=== PATIENT | female | born 1950 | race Caucasian/White ===

== ENCOUNTER 2018-03-18 07:11 | Day surgery (SDC) | payer BC, MEDICARE ==
[2018-03-18] MEDS: Polymyxin B/Trimethoprim 10 ML Bottle EYERT SCH ×4 (07:27→08:54)
[2018-03-18] MEDS: Brimonidine 0.2% Ophth Soln 5 ML Bottle EYERT SCH ×5 (07:32→08:54)
--- NOTE | 2018-03-18 07:32 | PCM.PREANE ---
Preanesthetic Assessment - Anesthesia/Transfusion/Family Hx Anesthesia History: Prior Anesthesia Without Reaction Family History of Anesthesia Reaction: No Transfusion History: No Prior Transfusion(s) - Review of Systems General: No Symptoms, Other (high cholesterol) Pulmonary: No Symptoms, Other (HTN) Cardiovascular: Other (HTn) Gastrointestinal: No Symptoms Neurological: Other (chronic back pain) Other: Reports: Diabetes (am glucose 160) - Physical Assessment NPO Status Date: 03/17/18 NPO Status Time: 17:30 Pulse: 58 O2 Sat by Pulse Oximetry: 100 Respiratory Rate: 16 Blood Pressure: 164/71 Weight: 60.328 kg ASA Class: 2 Mental Status: Alert & Oriented x3 Airway Class: Mallampati = 2 Dentition: Reports: Normal Dentition Thyro-Mental Finger Breadths: 3 Mouth Opening Finger Breadths: 3 ROM/Head Extension: Full Lungs: Clear to Auscultation, Normal Respiratory Effort Cardiovascular: Regular Rate, Regular Rhythm - Allergies Allergies/Adverse Reactions: Allergies Allergy/AdvReac Type Severity Reaction Status Date / Time hydrocodone Allergy Cannot Verified 03/17/18 13:59 Remember Opioids - Morphine Analogues Allergy Cannot Verified 03/17/18 13:59 Remember Penicillins Allergy Cannot Verified 03/17/18 13:59 Remember - Blood Blood Available: No Product(s) Available: None - Anesthesia Plan Beta Mile: Atenolol Med Last Dose Date: 03/18/18 Med Last Dose Time: 08:00 - Acknowledgements Anesthesia Type Planned: MAC Pt an Appropriate Candidate for the Planned Anesthesia: Yes Alternatives and Risks of Anesthesia Discussed w Pt/Guardian: Yes Pt/Guardian Understands and Agrees with Anesthesia Plan: Yes PreAnesthesia Questionnaire - HOME MEDS Home Medications: Home Meds Alendronate Sodium [Fosamax] 70 mg PO WEEKLY 03/17/18 [History] Atenolol 100 mg PO DAILY 03/17/18 [History] Omeprazole 20 mg PO DAILY 03/17/18 [History] Simvastatin [Zocor] 10 mg PO DAILY 03/17/18 [History] Triamterene/Hydrochlorothiazid [Triamterene-HCTZ 37.5-25 MG] 1 tab PO DAILY [History] glyBURIDE [Glyburide] 5 mg PO DAILY 03/17/18 [History] glyBURIDE/Metformin HCl [Glucovance 5-500 MG] 1 tab PO ASDIRECTED 03/17/18 [ History] - CURRENT (IN HOUSE) MEDS Current Meds: Current Medications Brimonidine Tartrate (Alphagan 0.2% Ophth Soln) 0 ml EYERT ASDIRECTED MAURILIO Stop: 03/18/18 18:00 Cefuroxime Sodium (Zinacef) 0 mg EYERT ASDIRECTED MAURILIO Stop: 03/18/18 18:00 Lidocaine HCl (Xylocaine-Mpf 1%) 0 ml INJECT ASDIRECTED MAURILIO Stop: 03/18/18 18:00 Phenylephrine HCl (Paolo-Synephrine 2.5% Ophth Soln) 0 ml EYERT ASDIRECTED MAURILIO Stop: 03/18/18 18:00 Pilocarpine HCl (Pilocar 4% Ophth Soln) 0 ml EYERT ASDIRECTED MAURILIO Stop: 03/18/18 18:00 Polymyxin/Trimethoprim Sulfate (Polytrim Ophth Soln) 0 ml EYERT ASDIRECTED MAURILIO Stop: 03/18/18 18:00 Tetracaine HCl (Tetracaine 0.5% Steri-Unit Brandi) 1 ml EYERT ASDIRECTED MAURILIO Stop: 03/18/18 18:00 Tropicamide (Mydriacyl 1% Ophth Soln) 0 ml EYERT ASDIRECTED MAURILIO Stop: 03/18/18 18:00
[2018-03-18] MEDS: Phenylephrine 2.5% Ophth Soln 2 ML Bot EYERT SCH ×7 (07:37→08:37)
[2018-03-18] MEDS: Tetracaine HCl/PF 0.5% 4 ML Bottle EYERT SCH ×3 (07:54→08:43)
[2018-03-18] MEDS: Lidocaine 1% PF 2 ML SDV INJECT SCH ×2 (07:54→08:43)
[2018-03-18] MEDS: Cefuroxime 10 MG/ML SYRINGE EYERT SCH ×2 (07:55→08:53)
[2018-03-18] MEDS: Pilocarpine 4% Ophth Soln 15 ML Bot EYERT SCH ×2 (07:56→08:54)
[2018-03-18] MEDS: Tropicamide 1% Ophth Soln 3 ML Bottle EYERT SCH ×2 (08:02→08:22)
--- NOTE | 2018-03-18 08:56 | PCM48HPAN ---
Post Anesthesia Note - EVALUATION WITHIN 48HRS OF ANESTHETIC Vital Signs in Normal Range: Yes Patient Participated in Evaluation: Yes Respiratory Function Stable: Yes Airway Patent: Yes Cardiovascular Function Stable: Yes Hydration Status Stable: Yes Pain Control Satisfactory: Yes Nausea and Vomiting Control Satisfactory: Yes Mental Status Recovered: Yes Pulse Rate: 63 SaO2: 97 Resp Rate: 13 Blood Pressure: 158/72
== END 2018-03-18 09:05 | disposition home or self-care (01) ==
LOC: JD.SDS 07:11
PROVIDERS: ATTEND Ophthalmology
DX: E11.36 Type 2 diabetes mellitus with diabetic cataract (principal); H25.813 Combined forms of age-related cataract, bilateral; I10 Essential (primary) hypertension; H35.3131 Nonexudative age-related macular degeneration, bilateral, early dry stage; H16.223 Keratoconjunctivitis sicca, not specified as Sjogren's, bilateral; H16.103 Unspecified superficial keratitis, bilateral; H02.831 Dermatochalasis of right upper eyelid; H02.834 Dermatochalasis of left upper eyelid; E78.00 Pure hypercholesterolemia, unspecified; Z87.891 Personal history of nicotine dependence; Z79.84 Long term (current) use of oral hypoglycemic drugs; Z79.899 Other long term (current) drug therapy; Z88.5 Allergy status to narcotic agent; Z88.0 Allergy status to penicillin
CPT/HCPCS: 66984; C1780; J0697; A9270-GY; J2001

== ENCOUNTER 2018-04-22 07:34 | Day surgery (SDC) | payer MEDICARE ==
[~2018-04-22 07:34] MED LIST: Cefuroxime 10 MG/ML SYRINGE EYELF SCH
[2018-04-22] MEDS: Polymyxin B/Trimethoprim 10 ML Bottle EYELF SCH ×4 (07:50→09:26)
--- NOTE | 2018-04-22 07:53 | PCM.PREANE ---
Preanesthetic Assessment - Anesthesia/Transfusion/Family Hx Anesthesia History: Prior Anesthesia Without Reaction Transfusion History: No Prior Transfusion(s) - Review of Systems General: No Symptoms Pulmonary: No Symptoms Cardiovascular: No Symptoms Gastrointestinal: No Symptoms Neurological: No Symptoms Other: Reports: None - Physical Assessment NPO Status Date: 04/21/18 NPO Status Time: 18:00 ASA Class: 3 Mental Status: Alert & Oriented x3 Airway Class: Mallampati = 2 Dentition: Reports: Normal Dentition ROM/Head Extension: Full Lungs: Clear to Auscultation - Allergies Allergies/Adverse Reactions: Allergies Allergy/AdvReac Type Severity Reaction Status Date / Time hydrocodone Allergy Cannot Verified 04/21/18 13:10 Remember Opioids - Morphine Analogues Allergy Cannot Verified 04/21/18 13:10 Remember Penicillins Allergy Cannot Verified 04/21/18 13:10 Remember - Anesthesia Plan Beta Mile: Atenolol Med Last Dose Date: 04/21/18 Med Last Dose Time: 19:00 - Acknowledgements Anesthesia Type Planned: MAC Pt an Appropriate Candidate for the Planned Anesthesia: Yes Alternatives and Risks of Anesthesia Discussed w Pt/Guardian: Yes Pt/Guardian Understands and Agrees with Anesthesia Plan: Yes PreAnesthesia Questionnaire Cardiovascular History: Reports: High Cholesterol, Hypertension Endocrine/Metabolic History: Reports: Diabetes, Type II - Past Surgical History HEENT Surgical History: Reports: Cataract Surgery GI Surgical History: Reports: Appendectomy, Cholecystectomy Female Surgical History: Reports: Tubal Ligation - HOME MEDS Home Medications: Home Meds Alendronate Sodium [Fosamax] 70 mg PO WEEKLY 03/17/18 [History] Atenolol 100 mg PO DAILY 03/17/18 [History] Omeprazole 20 mg PO DAILY 03/17/18 [History] Simvastatin [Zocor] 10 mg PO DAILY 03/17/18 [History] Triamterene/Hydrochlorothiazid [Triamterene-HCTZ 37.5-25 MG] 1 tab PO DAILY [History] glyBURIDE [Glyburide] 5 mg PO DAILY 03/17/18 [History] glyBURIDE/Metformin HCl [Glucovance 5-500 MG] 1 tab PO TID 03/17/18 [History] - CURRENT (IN HOUSE) MEDS Current Meds: Current Medications Brimonidine Tartrate (Alphagan 0.2% Oph Soln) 0 ml EYELF ASDIRECTED MAURILIO Stop: 04/22/18 18:00 Cefuroxime Sodium (Zinacef) 0 mg EYELF ASDIRECTED MAURILIO Stop: 04/22/18 18:00 Lidocaine HCl (Xylocaine-Mpf 1%) 0 ml INJECT ASDIRECTED MAURILIO Stop: 04/22/18 18:00 Phenylephrine HCl (Paolo-Synephrine 2.5% Ophth Soln) 0 ml EYELF ASDIRECTED MAURILIO Stop: 04/22/18 18:00 Pilocarpine HCl (Pilocar 4% Ophth Soln) 0 ml EYELF ASDIRECTED MAURILIO Stop: 04/22/18 18:00 Polymyxin/Trimethoprim Sulfate (Polytrim Ophth Soln) 0 ml EYELF ASDIRECTED MAURILIO Stop: 04/22/18 18:00 Tetracaine HCl (Tetracaine 0.5% Steri-Unit Brandi) 0 ml EYELF ASDIRECTED MAURILIO Stop: 04/22/18 18:00 Tropicamide (Mydriacyl 1% Ophth Soln) 0 ml EYELF ASDIRECTED MAURILIO Stop: 04/22/18 18:00
[2018-04-22] MEDS: Brimonidine 0.2% Ophth Soln 5 ML Bottle EYELF SCH ×4 (07:55→09:26)
[2018-04-22] MEDS: Phenylephrine 2.5% Ophth Soln 2 ML Bot EYELF SCH ×6 (08:00→09:03)
[2018-04-22] MEDS: Tropicamide 1% Ophth Soln 15 ML Bottle EYELF SCH ×4 (08:05→08:46)
--- NOTE | 2018-04-22 08:40 | PCM48HPAN ---
Post Anesthesia Note - EVALUATION WITHIN 48HRS OF ANESTHETIC Vital Signs in Normal Range: Yes Patient Participated in Evaluation: Yes Respiratory Function Stable: Yes Airway Patent: Yes Cardiovascular Function Stable: Yes Hydration Status Stable: Yes Pain Control Satisfactory: Yes Nausea and Vomiting Control Satisfactory: Yes Mental Status Recovered: Yes Pulse Rate: 70 SaO2: 96 Resp Rate: 16 Temperature: 97.4 F Blood Pressure: 119/67
[2018-04-22] MEDS: Tetracaine HCl/PF 0.5% 4 ML Bottle EYELF SCH ×3 (08:46→09:11)
[2018-04-22] MEDS: Lidocaine 1% PF 2 ML SDV INJECT SCH ×2 (08:46→09:11)
[2018-04-22] MEDS: Pilocarpine 4% Ophth Soln 15 ML Bot EYELF SCH ×2 (08:46→09:26)
--- NOTE | 2018-04-22 09:32 | PCM48HPAN ---
Post Anesthesia Note - EVALUATION WITHIN 48HRS OF ANESTHETIC Vital Signs in Normal Range: Yes Patient Participated in Evaluation: Yes Respiratory Function Stable: Yes Airway Patent: Yes Cardiovascular Function Stable: Yes Hydration Status Stable: Yes Pain Control Satisfactory: Yes Nausea and Vomiting Control Satisfactory: Yes Mental Status Recovered: Yes Pulse Rate: 58 SaO2: 100 Resp Rate: 16 Temperature: 97 F Blood Pressure: 150/63
== END 2018-04-22 09:36 | disposition home or self-care (01) ==
LOC: JD.SDS 07:34
PROVIDERS: ATTEND Ophthalmology
DX: H25.812 Combined forms of age-related cataract, left eye (principal); E11.36 Type 2 diabetes mellitus with diabetic cataract; H16.223 Keratoconjunctivitis sicca, not specified as Sjogren's, bilateral; H35.3131 Nonexudative age-related macular degeneration, bilateral, early dry stage; H35.363 Drusen (degenerative) of macula, bilateral; I10 Essential (primary) hypertension; E78.00 Pure hypercholesterolemia, unspecified; Z88.0 Allergy status to penicillin; Z87.891 Personal history of nicotine dependence; Z79.82 Long term (current) use of aspirin; Z79.84 Long term (current) use of oral hypoglycemic drugs; Z79.83 Long term (current) use of bisphosphonates; Z79.899 Other long term (current) drug therapy; Z88.5 Allergy status to narcotic agent; Z98.41 Cataract extraction status, right eye; Z96.1 Presence of intraocular lens
CPT/HCPCS: 66984; C1780; A9270-GY; J0697; J2001